=== PATIENT | male | born 1975 | race Caucasian/White ===

== ENCOUNTER 2019-08-10 11:41 | Emergency (ER) | payer OTHER, BC, SELFPAY ==
--- NOTE | ~2019-08-10 | XR_ITS ---
XR toe 3rd RT min 2V DATE: 08/10/2019 12:14 INDICATION: Laceration, pain TECHNIQUE: 3 views COMPARISON: None FINDINGS: Examination is technically limited due to grid lines. No apparent fracture or dislocation, periosteal reaction or bone destruction. There is a small linear opacity at the lateral aspect of the midshaft of the proximal phalanx; small foreign body is not excluded. IMPRESSION: Limited examination; possible small foreign body Reviewed, dictated and finalized at location A.
[2019-08-10 11:43] VITALS: BP 135/96; PULSE 60; RESP 20; TEMP 36.5; O2SAT 100
--- NOTE | 2019-08-10 12:02 | ED.GENADULT ---
HPI - General Adult General Chief complaint: Wound/Laceration <AMBER Guevara Last Filed: 08/10/19 13:29> Stated complaint: right foot injury <AMBER Guevara Last Filed: 08/10/19 13:29> Time Seen by Provider: 08/10/19 11:47 <AMBER Guevara Last Filed: 08/10/19 13:29> Source: patient <AMBER Guevara Last Filed: 08/10/19 13:29> Mode of arrival: ambulatory <AMBER Guevara Last Filed: 08/10/19 13:29> Limitations: no limitations <AMBER Guevara Last Filed: 08/10/19 13:29> History of Present Illness HPI narrative: Patient is a 43-year-old male who presents to emergency department for evaluation of laceration to the right middle toe patient dropped a mirror onto the toe just prior to arrival patient on arrival notes aching pain worse with weightbearing and activity patient denies any other injuries or trauma is unsure to his tetanus status denies any numbness or tingling <AMBER Guevara Last Filed: 08/10/19 13:29> Related Data Allergies/adverse reactions: Allergies Allergy/AdvReac Type Severity Reaction Status Date / Time No Known Allergies Allergy Verified 08/10/19 11:45 <AMBER Guevara Last Filed: 08/10/19 13:29> Review of Systems Review of Systems: Narrative: CONSTITUTIONAL: Denies fever, chills, or sweats. SKIN: Patient with laceration of the dorsal surface of the right middle toe at the base of the digit that is irregular without any other deformity of the toe noted MUSCULOSKELETAL: Positive for toe pain and laceration NEUROLOGIC: Denies numbness or tingling <AMBER Guevara Last Filed: 08/10/19 13:29> Course Vital Signs Vital signs: Vital Signs Temperature 36.5 C 08/10/19 11:43 Pulse Rate 60 08/10/19 11:43 Respiratory Rate 20 08/10/19 11:43 Blood Pressure 135/96 H 08/10/19 11:43 Pulse Oximetry 100 08/10/19 11:43 Temperature 36.5 C 08/10/19 11:43 Pulse Rate 60 08/10/19 11:43 Respiratory Rate 20 08/10/19 11:43 Blood Pressure 135/96 H 08/10/19 11:43 Pulse Oximetry 100 08/10/19 11:43 <AMBER Guevara Last Filed: 08/10/19 13:29> Vital Signs Temperature 36.5 C 08/10/19 11:43 Pulse Rate 60 08/10/19 11:43 Respiratory Rate 20 08/10/19 11:43 Blood Pressure 135/96 H 08/10/19 11:43 Pulse Oximetry 100 08/10/19 11:43 Temperature 36.5 C 08/10/19 11:43 Pulse Rate 60 08/10/19 11:43 Respiratory Rate 08/10/19 11:43 Blood Pressure 135/96 H 08/10/19 11:43 Pulse Oximetry 100 08/10/19 11:43 <Wesly Aldrich MD - Last Filed: 08/10/19 16:15> Procedures Laceration Laceration 1: Date: 08/10/19 <AMBER Guevara Last Filed: 08/10/19 13:29> Time: 13:27 <AMBER Guevara Last Filed: 08/10/19 13:29> Site: lower extremity <AMBER Guevara Last Filed: 08/10/19 13:29> Side (If applicable): right <AMBER Guevara Last Filed: 08/10/19 13:29> Size (cm): 2.5 <AMBER Guevara Last Filed: 08/10/19 13:29> Description: irregular <AMBER Guevara Last Filed: 08/10/19 13:29> Depth: simple, single layer <AMBER Guevara Last Filed: 08/10/19 13:29> Local Anesthetic: lidocaine 1% <AMBER Guevara Last Filed: 08/10/19 13:29> Pre-repair: wound explored, irrigated, irrigated extensively and other (Small piece of glass removed from the wound) <AMBER Guevara Last Filed: 08/10/19 13:29> Skin layer closed with: vicryl <AMBER Guevara Last Filed: 08/10/19 13:29> Size (cm): 5-0 <AMBER Guevara Last Filed: 08/10/19 13:29> Number of sutures: 5 <AMBER Guevara Last Filed: 08/10/19 13:29> Dressing: Nonadhesive antibiotic ointment 4 x 4 and Coban placed post
[2019-08-10] MEDS: TETANUS,DIPHTHERIA,AC PERTUSSIS ADULT (0.5 ML) BOOSTRIX IM (12:09)
== END 2019-08-10 13:36 | disposition home or self-care (01) ==
PROVIDERS: Emergency Provider Emergency Medicine
DX: S91.114A Laceration without foreign body of right lesser toe(s) without damage to nail, initial encounter (principal); Z23 Encounter for immunization; W20.8XXA Other cause of strike by thrown, projected or falling object, initial encounter
CPT/HCPCS: 12001; 73660; 90471; 90715; 99283